=== PATIENT | male | born 1950 | race Caucasian/White ===

== ENCOUNTER → 2020-12-01 | Day surgery (SDC) | payer MEDICARE ==
[~2020-12-01] MED LIST: Albumin 25% 0 ML ONE; FLU VACC QS2020-21(65YR UP)/PF 240 MCG/0.7 ML SYRINGE IM ONE; Lidocaine 1% PF 5 ML VIAL ONE; Sodium Bicarbonate 2.5 MEQ/5 ML VIAL ONE
[2020-12-01 09:01] VITALS: BP 104/55; TEMP 97.9
== END ==
LOC: EDSTATUS 11-17 09:30 → CSHRAD 08:29
PROVIDERS: ATTEND Internal Medicine
DX: R18.8 Other ascites (principal)
CPT/HCPCS: 76705; P9047

== ENCOUNTER → 2020-12-22 | Day surgery (SDC) | payer MEDICARE | LOC: EDSTATUS 12-01 09:30 → CSHRAD 08:48 | PROVIDERS: ATTEND Internal Medicine | DX: R18.8 Other ascites (principal) | CPT/HCPCS: 76705 ==

== ENCOUNTER 2021-01-05 08:45 | Day surgery (SDC) | payer MEDICARE ==
[2021-01-05] MEDS ORDERED: Sodium Bicarbonate 2.5 MEQ/5 ML VIAL ONE (09:13)
[2021-01-05] MEDS ORDERED: Albumin 25% 200 ML ONE (09:13)
[2021-01-05] MEDS ORDERED: Lidocaine 1% PF 5 ML VIAL ONE (09:13)
[2021-01-05 09:42] VITALS: BMI 23.1
[2021-01-05 09:44] VITALS: BP 103/64; TEMP 98
== END 2021-01-05 10:30 | disposition home or self-care (01) ==
LOC: CSHRAD 08:45
PROVIDERS: ATTEND Internal Medicine
DX: R18.8 Other ascites (principal)
CPT/HCPCS: 49083; P9047

== ENCOUNTER → 2021-01-19 | Day surgery (SDC) | payer MEDICARE ==
[~2021-01-19] MED LIST changes: -Albumin 25% 0 ML ONE; +Albumin 25% 200 ML ONE; -FLU VACC QS2020-21(65YR UP)/PF 240 MCG/0.7 ML SYRINGE IM ONE
== END ==
LOC: CSHRAD 08:49
PROVIDERS: ATTEND Internal Medicine
DX: R18.8 Other ascites (principal)
CPT/HCPCS: 49083; P9047

== ENCOUNTER → 2021-02-02 | Day surgery (SDC) | payer MEDICARE ==
[~2021-02-02] MED LIST changes: +Albumin 25% 100 ML ONE; -Albumin 25% 200 ML ONE; -Lidocaine 1% PF 5 ML VIAL ONE
== END ==
LOC: CSHRAD 08:36
PROVIDERS: ATTEND Internal Medicine
DX: R18.8 Other ascites (principal)
CPT/HCPCS: 49083; P9047

== ENCOUNTER 2021-02-16 08:48 | Day surgery (SDC) | payer MEDICARE ==
[2021-02-16] MEDS ORDERED: Sodium Bicarbonate 2.5 MEQ/5 ML VIAL ONE (09:31)
[2021-02-16] MEDS ORDERED: Albumin 25% 200 ML ONE (09:31)
[2021-02-16 09:58] VITALS: BMI 23.1
[2021-02-16 10:00] VITALS: BP 108/70; TEMP 97.8
== END 2021-02-16 10:55 | disposition home or self-care (01) ==
LOC: CSHRAD 08:48
PROVIDERS: ATTEND Internal Medicine
DX: R18.8 Other ascites (principal)
CPT/HCPCS: 49083; P9047